=== PATIENT | male | born 1975 | race Caucasian/White ===

== ENCOUNTER 2017-12-06 08:11 | Emergency (ER) | payer OTHER ==
--- NOTE | 2017-12-06 08:52 | Emergency Department Report ---
ED General Adult HPI - General Chief complaint: Overdose Stated complaint: OVERDOSE Time Seen by Provider: 12/06/17 08:50 Source: patient, EMS Mode of arrival: Stretcher Limitations: Language Barrier - History of Present Illness Initial comments: This is a 42 year old male that arrives with a family member referring overdose twice over the past approximate 24 hours. He is said to have taken 21 mg Xanax tablets yesterday at about 5 PM. He slept until this morning. He then proceeded to take an herbal medicine called the Danielle, #13 in order to go back to sleep earlier this a.m. He has been depressed he states due to issues with his . He is not very communicative even in [place]ic. Family member refers no prior psychiatric history or hospitalization. Patient did state that he wanted to . He has been depressed for weeks to months. -: week(s), month(s) Associated Symptoms: denies other symptoms - Related Data Home Medications Medication Instructions Recorded Confirmed Last Taken No Known Home Medications [No 10/26/15 10/26/15 Unknown Reported Home Medications] Allergies Allergy/AdvReac Type Severity Reaction Status Date / Time No Known Allergies Allergy Unverified 10/26/15 14:15 ED Review of Systems ROS: Stated complaint: OVERDOSE Other details as noted in HPI Comment: Unobtainable due to pts medical conditions (patient has no complaints however he is a bit lethargic and not providing significant information.) ED Past Medical Hx - Past Medical History Previous Medical History?: Yes Additional medical history: Depression - Surgical History Past Surgical History?: No - Social History Smoking Status: Never Smoker Substance Use Type: None - Medications Home Medications: Home Medications Medication Instructions Recorded Confirmed Last Taken Type No Known Home Medications [No 10/26/15 10/26/15 Unknown History Reported Home Medications] ED Physical Exam - General General appearance: alert, in no apparent distress - Head Head exam: Present: atraumatic, normocephalic - Eye Eye exam: Present: normal appearance - ENT ENT exam: Present: mucous membranes moist - Neck Neck exam: Present: normal inspection - Respiratory Respiratory exam: Present: normal lung sounds bilaterally. Absent: respiratory distress - Cardiovascular Cardiovascular Exam: Present: regular rate, normal rhythm. Absent: systolic murmur, diastolic murmur, rubs, gallop - GI/Abdominal GI/Abdominal exam: Present: soft, normal bowel sounds. Absent: distended, tenderness, guarding, rebound, rigid - Rectal Rectal exam: Present: deferred - Extremities Exam Extremities exam: Present: normal inspection - Back Exam Back exam: Present: normal inspection - Neurological Exam Neurological exam: Present: CN II-XII intact. Absent: motor sensory deficit - Psychiatric Psychiatric exam: Present: depressed, flat affect - Skin Skin exam: Present: warm, dry, intact, normal color. Absent: rash ED Course Vital Signs 12/06/17 12/06/17 12/06/17 08:12 08:16 08:30 Temperature 97.5 F L Pulse Rate 86 91 H Respiratory 20 14 Rate Blood Pressure 108/73 108/73 117/79 Blood Pressure [Left] O2 Sat by Pulse 99 100 Oximetry 12/06/17 12/06/17 12/06/17 08:45 09:00 09:15 Temperature Pulse Rate 83 79 82 Respiratory 22 14 20 Rate Blood Pressure 107/75 107/75 117/83 Blood Pressure [Left] O2 Sat by Pulse 99 100 Oximetry 12/06/17 09:36 Temperature 97.7 F Pulse Rate 83 Respiratory 20 Rate Blood Pressure Blood Pressure 111/76 [Left] O2 Sat by Pulse 97 Oximetry - Reevaluation(s) Reevaluation #1: 1013 initiated. Patient's overdose is probably non-significant. He will be observed in the emergency Department and medically cleared most likely. Psychiatric hospitalization his anticipated. 12/06/17 09:14 ED Medical Decision Making - Lab Data Result diagrams: 12/06/17 09:02 12/06/17 09:02 Laboratory Results - last 24 hr 12/06/17 12/06/17 12/06/17 09:02 09:02 09:02 WBC RBC Hgb Hct MCV MCH MCHC RDW Plt Count Lymph % (Auto) [place] % (Auto) Eos % (Auto) Baso % (Auto) Lymph # [place] # Eos # Baso # Seg Neutrophils % Seg Neutrophils # Sodium 134 L Potassium 4.6 Chloride 100.3 Carbon Dioxide 30 Anion Gap 8 BUN 9 Creatinine 0.7 L Estimated GFR > 60 BUN/Creatinine Ratio 13 Glucose 94 Calcium 9.3 Total Bilirubin Direct Bilirubin Indirect Bilirubin AST ALT Alkaline Phosphatase Total Protein Albumin Albumin/Globulin Ratio Salicylates < 0.3 L Acetaminophen < 5.0 L Plasma/Serum Alcohol 12/06/17 12/06/17 12/06/17 09:02 09:02 09:02 WBC 12.2 H RBC 4.52 Hgb 13.6 Hct 40.3 MCV 89 MCH 30 MCHC 34 RDW 13.8 Plt Count 230 Lymph % (Auto) 11.4 L [place] % (Auto) 6.6 Eos % (Auto) 0.8 Baso % (Auto) 0.4 Lymph # 1.4 [place] # 0.8 Eos # 0.1 Baso # 0.1 Seg Neutrophils % 80.8 H Seg Neutrophils # 9.9 H Sodium Potassium Chloride Carbon Dioxide Anion Gap BUN Creatinine Estimated GFR BUN/Creatinine Ratio Glucose Calcium Total Bilirubin 0.60 Direct Bilirubin < 0.2 Indirect Bilirubin 0.4 AST 17 ALT 14 Alkaline Phosphatase 63 Total Protein 7.1 Albumin 4.3 Albumin/Globulin Ratio 1.5 Salicylates Acetaminophen Plasma/Serum Alcohol < 0.01 - EKG Data -: EKG Interpreted by Ri EKG shows normal: sinus rhythm, axis, intervals, QRS complexes, ST-T waves Rate: normal - EKG Data Interpretation: nonspecific ST-T wave digna (minimal) Critical care attestation.: If time is entered above; I have spent that time in minutes in the direct care of this critically ill patient, excluding procedure time. ED Disposition Clinical Impression: Suicide gesture Qualifiers: Encounter type: initial encounter Qualified Code(s): X83.8XXA - Intentional self-harm by other specified means, initial encounter Depression Qualifiers: Depression Type: major depressive disorder Major depression recurrence: recurrent Active/Remission status: currently active Major depression episode severity: severe Psychotic features: without psychotic features Qualified Code(s ): F33.2 - Major depressive disorder, recurrent severe without psychotic features Disposition: DC/TX-65 PSY HOSP/PSY UNIT Is pt being admited?: No Does the pt Need Aspirin: No Condition: Stable Referrals: SCOTT COOK MD [Primary Care Provider] - 3-5 Days Time of Disposition: 14:46
[2017-12-06 09:34] LABS: BUN/Creatinine Ratio 13; Basophils # (Auto) 0.1 K/mm3 (0.0-0.1); Basophils % (Auto) 0.4 % (0.0-1.8); Blood Urea Nitrogen 9 mg/dL (9-20); Calcium 9.3 mg/dL (8.4-10.2); Eosinophils # (Auto) 0.1 K/mm3 (0.0-0.4); Eosinophils % (Auto) 0.8 % (0.0-4.3); Hematocrit 40.3 % (35.5-45.6); Hemoglobin 13.6 gm/dl (11.8-15.2); Hemolysis Index 7; Lymphocytes # (Auto) 1.4 K/mm3 (1.2-5.4); Lymphocytes % (Auto) 11.4 % (13.4-35.0); Mean Corpuscular HGB Conc 34 % (32-34); Mean Corpuscular Hemoglobin 30 pg (28-32); Mean Corpuscular Volume 89 fl (84-94); Monocytes # (Auto) 0.8 K/mm3 (0.0-0.8); Monocytes % (Auto) 6.6 % (0.0-7.3); Platelet Count 230 K/mm3 (140-440); Red Blood Count 4.52 M/mm3 (3.65-5.03); Red Cell Distribution Width 13.8 % (13.2-15.2)
[2017-12-06 09:38] LABS: Alanine Aminotransferase 14 units/L (7-56); Albumin 4.3 g/dL (3.9-5); Bilirubin,Direct < 0.2 mg/dL (0-0.2)
[2017-12-07 12:13] LABS: Bilirubin,Urine NEG (Negative); Blood,Urine NEG (Negative); Color,Urine Yellow (Yellow); Mucus,Urine FEW /HPF; Protein,Urine <15 mg/dL mg/dL (Negative); Urobilinogen,Urine < 2.0 mg/dL (<2.0); WBC,Urine < 1.0 /HPF (0.0-6.0)
[2017-12-07 12:23] LABS: Amphetamine Screen,Urine PRESUMPTIVE NEGATIVE; Cannabinoid Screen,Urine PRESUMPTIVE NEGATIVE; Cocaine Screen,Urine PRESUMPTIVE NEGATIVE; Methadone Screen,Urine PRESUMPTIVE NEGATIVE; Opiate Screen,Urine PRESUMPTIVE NEGATIVE
[2017-12-07 12:37] LABS: Benzodiazepines Screen,Urine PRESUMPTIVE POSITIVE
--- NOTE | 2017-12-07 13:00 | Consultation ---
History of Present Illness - Reason for Consult Consult date: 12/07/17 Reason for consult: Mental Health Evaluation Requesting physician: DOM LAMA - Chief Complaint Chief complaint: "I just wanted sleep" - History of Present Psychiatric Illness 42 year old male presenting to [facility] for overdose on Xanax and another pill he cannot ID. Today the patient is calm and cooperative. He stated that he took multiple pills to get sleep, because he was tired. He stated that he had not gotten much sleep because he had been arguing with his for several hours. He stated that the the pills belong to his . He denies trying to kill himself when asked. He denies a prior suicide attempt. He stated that he need to be discharged. He denies SI/HI's and AVH's. He denies depression, erratic sleep, and a poor appetite. He denies manic episodes any time in the past. He denies recreational drug use and alcohol consumption (etoh). Medications and Allergies Allergies Allergy/AdvReac Type Severity Reaction Status Date / Time No Known Allergies Allergy Unverified 10/26/15 14:15 Home Medications Medication Instructions Recorded Confirmed Last Taken Type No Known Home Medications [No 10/26/15 10/26/15 Unknown History Reported Home Medications] Past psychiatric history - Past Medical History Past Medical History: No medical history Past Surgical History: No surgical history - past Psychiatric treatment and history psychiatric treatment history: Denies a psy hx and fam psy hx. - Social History Social history: lives with family Mental Status Exam - Vital signs Last Vital Signs Temp 98.2 F 12/07/17 08:01 Pulse 64 12/07/17 08:01 Resp 20 12/07/17 08:01 BP 97/64 12/07/17 08:01 Pulse Ox 98 12/07/17 08:01 - Exam Narrative exam: MSE: Appearance: calm, cooperative Behavior: regular eye contact Speech: regular rate and tone Mood: "okay"" Affect: normal Thought Process: circumstantial Thought Content: denies SI/HI's and AVH's Motor Activity: ambulatory Cognition: A/O x 3 Insight: variable Judgment: variable Results Result Diagrams: 12/06/17 09:02 12/06/17 09:02 All other labs normal. Assessment and Plan Assessment and plan: Impression: The patient overdosed on multiple Xanax pills and another pill he cannot ID. The patient minimizes his actions. DDx: MDD, R/O Bipolar DO Recommendation/Plan: Continue 1013 and gather collateral information to determine proper treatment and dispo.
--- NOTE | 2017-12-08 13:09 | Progress Note ---
Subjective - Reason for Consult Consult date: 12/08/17 Reason for consult: Psychiatry Follow-up - Chief Complaint Chief complaint: "When can I leave" 42 year old male presenting to [facility] for overdose on Xanax and another pill he cannot ID. Today the patient is calm and cooperative during the assessment. He admitted to being depressed prior to him taking multiple pills. He stated feeling sad, hopeless, and helpless recently because because of marital issues. He rate his depression 4/10, with 10 being the worse. He stated that he wanted to sleep and hoped to wake up once after taking the Xanax pills. He denies SI/HI's and AVH's. He agreed to take medication for depression. Mental Status Exam - Vital signs Last Vital Signs Temp 98.3 F 12/08/17 07:36 Pulse 63 12/08/17 07:36 Resp 18 12/08/17 07:36 BP 106/68 12/08/17 07:36 Pulse Ox 97 12/08/17 07:36 - Exam Narrative exam: MSE: Appearance: calm, cooperative Behavior: regular eye contact Speech: regular rate and tone Mood: "okay"" Affect: normal Thought Process: circumstantial Thought Content: denies SI/HI's and AVH's Motor Activity: ambulatory Cognition: A/O x 3 Insight: variable Judgment: variable Assessment and Plan Impression: MDD. The patient is calm and cooperative during the assessment. The patient overdosed on Xanax and another medication. DDx: MDD, R/O Bipolar DO Recommendation/Plan: Continue 1013 with placement to inpatient psy services. Start Zoloft 50 mg PO daily for depression. Discussed possible suicidality/ medication induced carlos with patient. Discussed generalized coping skills with patient.
[2017-12-08] MEDS: ZOLOFT PO SCH (15:12)
[2017-12-09] MEDS: ZOLOFT PO SCH (09:55)
--- NOTE | 2017-12-09 17:57 | Progress Note ---
Subjective - Reason for Consult Reason for consult: xanax abuse - Chief Complaint Chief complaint: Subjectively: Patient more euthymic and appropriate. Patient continues to be future oriented. Continues to have some symptoms of depression which we were treating with initiation of Zoloft. At the current time patient denies SI. No psychosis noted. Patient denies ever having SI or engaging in the SA. General Appearance: casually dressed, no acute distress Sensorium/Consciousness: alert and responding to external stimuli; clear Orientation: person, place, time and situation Eye Contact: limited Attitude / Behavior: cooperative Psychomotor & Musculoskeletal Activity: WNL Mood: ok Affect: euthymic Speech / Language: fluent, with normal rate/rhythm/tone Thought Processes: organized, logical, linear Thought Content: no SI/HI Perception: no AVH Insight: fair Judgement: fair Capacity for ADLs: independent Plan: rescind 1013 Provides prescription for Zoloft 50 mg at bedtime upon discharge from the ER Follow up with his outpatient provider for the treatment of depression, patient does not have an established provider he can be referred to the [facility] and his area of residence Mental Status Exam - Vital signs Last Vital Signs Temp 98.4 F 12/09/17 07:10 Pulse 66 12/09/17 07:10 Resp 16 12/09/17 07:10 BP 103/62 12/09/17 07:10 Pulse Ox 97 12/09/17 07:10
[2017-12-09 18:32] VITALS: BP 116/63
--- NOTE | 2017-12-09 21:15 | Emergency Department Report ---
Blank Doc - Documentation Documentation: DR HEREDIA PSYCHIATRIST RESCINDED THE [address] HEREDIA REQUESTED A PRESCRIPTION FOR ZOLOFT 50MG QHS AND RECOMMENDED THE PT FOLLOW UP WITH THE [facility]
== END 2017-12-09 21:49 | disposition home or self-care (01) ==
LOC: EEVIPCON 08:11 → ED 08:11
DX: T42.4X2A Poisoning by benzodiazepines, intentional self-harm, initial encounter (principal); T50.992A Poisoning by other drugs, medicaments and biological substances, intentional self-harm, initial encounter; Y92.89 Other specified places as the place of occurrence of the external cause; F32.9 Major depressive disorder, single episode, unspecified
CPT/HCPCS: 36415; 80048; 80074; 80307; 81001; 85025; 93005; 93010; 99284; G0480; 80320